=== PATIENT | female | born 1935 | race Caucasian/White ===

== ENCOUNTER 2018-03-16 11:24 | Inpatient (IN) | payer OTHER ==
[~2018-03-16] VITALS: Ht 162.6 cm; Wt 67.1 kg
[~2018-03-16 11:24] MED LIST: ABAT250V; ACET325 PO; ALBU4 PO; ASCO1ER; ASCO500 PO; ASPI325 PO; ASPI81CH PO; ATEN100; ATEN50 PO; Amiodarone HCl200 MG PO; CALC1.25T PO; CALCAVITDA PO; CALCIT950; CEPH500 PO; CONESTTC VAG; Coumadin5 MG PO; DIGO.25; DIGO.25 PO; Diovan320 MG PO; ESOM20; ESOM20 PO; Elmiron100 MG; FURO20 PO; FURO40 PO; HYDACE10B PO; HYDR10; HYDURE500; HYDURE500 PO; ISOMON30 PO; METO50 PO; MULVITA PO; Miacalcin I200 IU/ML; NEBI10 PO; NEBI5 PO; NIFE30ER PO; NIFE60ER PO; Nifedical Xl60 MG PO; Norco 5-325 Ta1 EACH PO; OMEP10ER PO; Omeprazole20 M1; POTCHL20ER PO; ROPI1; Sotalol80 MG PO; TOCO1000; TOCO400 PO; TRAM50 PO; TRIM100 PO; TYLECOD3 PO; Tylenol325 MG PO; VALS80; VALS80 PO; VERA100; VERA240ERB PO; XARELTO10 MG PO; XARELTO15 MG PO
[2018-03-16 13:14] LABS: Source, Urine Catheter
[2018-03-16] MEDS ORDERED: METO100ER PO (13:16)
[2018-03-16 13:22] LABS: Bilirubin, Urine Neg (Neg); Blood, Urine 2+ (Neg); Glucose Qualitative, Urine 3+ (Neg); Ketones, Urine Neg (Neg); Leukocyte Esterase, Urine Neg (Neg); Nitrite, Urine Neg (Neg); Protein, Urine Neg (Neg); Specific Gravity, Urine 1.015 (1.003-1.022); Urobilinogen, Urine NORM (Normal)
[2018-03-16] MEDS ORDERED: DILT30 PO (13:22)
[2018-03-16] MEDS ORDERED: DIGOX125 MCG PO (13:22)
[2018-03-16 13:39] LABS: Color, Urine Yellow (P-Yellow)
[2018-03-16 13:40] LABS: Bacteria Many /hpf; Squamous Epithelial Cells Not Seen /hpf (Few)
[2018-03-16 13:41] LABS: Appearance, Urine Hazy (Clear)
[2018-03-16 13:57] LABS: BASOPHILS ABSOLUTE AUTO 0.01 K/mm3 (0.00-0.23); BASOPHILS PERCENT AUTO 0 % (0-2); EOSINOPHILS ABSOLUTE AUTO 0.17 K/mm3 (0.00-0.68); EOSINOPHILS PERCENT AUTO 2 % (0-6); Hemoglobin 13.3 g/dL (11.5-16.0); IMMATURE GRAN ABSOLUTE AUTO 0.05 K/mm3 (0.00-0.10); IMMATURE GRAN PERCENT AUTO 1 % (0-1); LYMPHOCYTES ABSOLUTE AUTO 1.28 K/mm3 (0.84-5.20); LYMPHOCYTES PERCENT AUTO 16 % (21-46); MONOCYTES ABSOLUTE AUTO 0.89 K/mm3 (0.16-1.47); MONOCYTES PERCENT AUTO 11 % (4-13); Mean Corpuscular HGB 35.2 pg (26.0-34.0); Mean Corpuscular HGB Conc 33.3 g/dL (31.5-36.5); Mean Corpuscular Volume 106 fL (80-100); Mean Platelet Volume 10.4 fL (9.1-12.4); NEUTROPHILS PERCENT AUTO 70 % (41-73); Platelet Count 273 K/mm3 (150-400); RDW Coefficient Variation 13.3 % (11.7-14.2); RDW Standard Deviation 51.6 fL (35.1-46.3); Red Blood Cell Count 3.78 M/mm3 (3.80-5.20)
[2018-03-16 14:10] LABS: Anion Gap 7 mmol/L (6-16); Blood Urea Nitrogen 17 mg/dL (8-24); Bun/Creatinine Ratio 25.4 (12.0-20.0); CO2, Blood 27 mmol/L (21-32); Chloride, Blood 106 mmol/L (98-108); Creatinine, Blood 0.67 mg/dL (0.40-1.00); Glomerular Filtration Rate >60 (60-); Glucose, Blood 282 mg/dL (70-99); Potassium, Blood 3.4 mmol/L (3.5-5.5); Sodium, Blood 140 mmol/L (136-145)
[2018-03-16] MEDS ORDERED: GENPREOPSU (16:54)
[2018-03-16] MEDS ORDERED: POTCHL20ER PO (17:08)
[2018-03-16 18:37] LABS: Digoxin (Lanoxin) 0.26 ug/mL (0.80-2.00)
[2018-03-17 04:37] LABS: Hematocrit 37.9 % (33.0-51.0); Hemoglobin 12.6 g/dL (11.5-16.0); Mean Corpuscular HGB 34.8 pg (26.0-34.0); Mean Corpuscular HGB Conc 33.2 g/dL (31.5-36.5); Mean Corpuscular Volume 105 fL (80-100); Platelet Count 232 K/mm3 (150-400); RDW Coefficient Variation 13.2 % (11.7-14.2); RDW Standard Deviation 50.9 fL (35.1-46.3); Red Blood Cell Count 3.62 M/mm3 (3.80-5.20); White Blood Cell Count 8.49 K/mm3 (4.00-11.30)
[2018-03-17 04:59] LABS: Anion Gap 8 mmol/L (6-16); Blood Urea Nitrogen 18 mg/dL (8-24); Bun/Creatinine Ratio 23.9 (12.0-20.0); CO2, Blood 28 mmol/L (21-32); Calcium, Blood 8.6 mg/dL (8.5-10.1); Chloride, Blood 105 mmol/L (98-108); Creatinine, Blood 0.75 mg/dL (0.40-1.00); Glomerular Filtration Rate >60 (60-); Glucose, Blood 150 mg/dL (70-99); Potassium, Blood 3.4 mmol/L (3.5-5.5); Sodium, Blood 141 mmol/L (136-145)
[2018-03-17 10:38] LABS: International Normalized Ratio 1.25; Prothrombin Time Results 13.1 Sec (9.7-11.5)
[2018-03-18 04:07] LABS: BASOPHILS ABSOLUTE AUTO 0.02 K/mm3 (0.00-0.23); BASOPHILS PERCENT AUTO 0 % (0-2); EOSINOPHILS ABSOLUTE AUTO 0.08 K/mm3 (0.00-0.68); EOSINOPHILS PERCENT AUTO 1 % (0-6); Hematocrit 37.2 % (33.0-51.0); Hemoglobin 11.9 g/dL (11.5-16.0); IMMATURE GRAN ABSOLUTE AUTO 0.05 K/mm3 (0.00-0.10); IMMATURE GRAN PERCENT AUTO 1 % (0-1); LYMPHOCYTES ABSOLUTE AUTO 0.81 K/mm3 (0.84-5.20); LYMPHOCYTES PERCENT AUTO 9 % (21-46); MONOCYTES ABSOLUTE AUTO 1.43 K/mm3 (0.16-1.47); MONOCYTES PERCENT AUTO 15 % (4-13); Mean Corpuscular HGB 34.2 pg (26.0-34.0); Mean Corpuscular Volume 107 fL (80-100); Mean Platelet Volume 10.5 fL (9.1-12.4); NEUTROPHILS ABSOLUTE AUTO 6.87 K/mm3 (1.96-9.15); NEUTROPHILS PERCENT AUTO 74 % (41-73); Platelet Count 218 K/mm3 (150-400); RDW Standard Deviation 50.8 fL (35.1-46.3); Red Blood Cell Count 3.48 M/mm3 (3.80-5.20); White Blood Cell Count 9.26 K/mm3 (4.00-11.30)
[2018-03-18 04:33] LABS: Albumin, Blood 2.9 g/dL (3.4-5.0); Anion Gap 8 mmol/L (6-16); Blood Urea Nitrogen 19 mg/dL (8-24); Bun/Creatinine Ratio 24.3 (12.0-20.0); CO2, Blood 30 mmol/L (21-32); Calcium, Blood 8.1 mg/dL (8.5-10.1); Chloride, Blood 99 mmol/L (98-108); Creatinine, Blood 0.78 mg/dL (0.40-1.00); Glomerular Filtration Rate >60 (60-); Glucose, Blood 210 mg/dL (70-99); Magnesium, Blood 1.9 mg/dL (1.6-2.4); Phosphorus, Blood 3.3 mg/dL (2.5-4.9); Potassium, Blood 3.3 mmol/L (3.5-5.5); Sodium, Blood 137 mmol/L (136-145)
[2018-03-19 04:06] LABS: Hematocrit 34.8 % (33.0-51.0); Hemoglobin 11.5 g/dL (11.5-16.0); Mean Corpuscular HGB 35.3 pg (26.0-34.0); Mean Corpuscular Volume 107 fL (80-100); Mean Platelet Volume 10.5 fL (9.1-12.4); Platelet Count 177 K/mm3 (150-400); RDW Coefficient Variation 13.1 % (11.7-14.2); RDW Standard Deviation 50.9 fL (35.1-46.3); Red Blood Cell Count 3.26 M/mm3 (3.80-5.20); White Blood Cell Count 6.79 K/mm3 (4.00-11.30)
[2018-03-19 04:32] LABS: Albumin, Blood 2.5 g/dL (3.4-5.0); Anion Gap 7 mmol/L (6-16); Blood Urea Nitrogen 12 mg/dL (8-24); Bun/Creatinine Ratio 19.2 (12.0-20.0); CO2, Blood 27 mmol/L (21-32); Calcium, Blood 7.9 mg/dL (8.5-10.1); Chloride, Blood 107 mmol/L (98-108); Creatinine, Blood 0.62 mg/dL (0.40-1.00); Glomerular Filtration Rate >60 (60-); Glucose, Blood 140 mg/dL (70-99); Phosphorus, Blood 2.5 mg/dL (2.5-4.9); Potassium, Blood 3.7 mmol/L (3.5-5.5); Sodium, Blood 141 mmol/L (136-145)
[2018-03-19 04:41] LABS: Digoxin (Lanoxin) 1.23 ug/mL (0.80-2.00)
[2018-03-19] MEDS ORDERED: CYCL10 PO (10:22)
[2018-03-19] MEDS ORDERED: HYDR1TAB94 PO (10:23)
[2018-03-19] MEDS ORDERED: LEVFLO500 PO (10:23)
== END 2018-03-19 16:00 | DRG 480 ==
LOC: ER 11:24 → ICUW 15:58 → SURS 15:58 → ICUW 03-18 11:00 → SURS 03-19 09:01
PROVIDERS: Anesthesiology; Emergency Medicine; Internal Medicine; Orthopaedic Surgery
PROC: 0QSC34Z Reposition Left Lower Femur with Internal Fixation Device, Percutaneous Approach (ICD-10-PCS; principal; 2018-03-17 12:00)
DX: S72.142A Displaced intertrochanteric fracture of left femur, initial encounter for closed fracture (principal); J96.01 Acute respiratory failure with hypoxia; I48.92 Unspecified atrial flutter; I42.1 Obstructive hypertrophic cardiomyopathy; N39.0 Urinary tract infection, site not specified; W01.0XXA Fall on same level from slipping, tripping and stumbling without subsequent striking against object, initial encounter; M85.80 Other specified disorders of bone density and structure, unspecified site; Z66 Do not resuscitate; E87.6 Hypokalemia; D45 Polycythemia vera; Z95.0 Presence of cardiac pacemaker; I48.91 Unspecified atrial fibrillation; T50.1X5A Adverse effect of loop [high-ceiling] diuretics, initial encounter; B96.20 Unspecified Escherichia coli [E. coli] as the cause of diseases classified elsewhere; B95.2 Enterococcus as the cause of diseases classified elsewhere; I95.9 Hypotension, unspecified
CPT/HCPCS: 36415; 51702; 71045; 73502; 80048; 80069; 80162; 81001; 82947; 83735; 83880; 85025; 85027; 85610; 85730; 86850; 86900; 86901; 87077; 87086; 87186; 93005; 93010; 94640; 94760; 94762; 97110; 97162; 97166; 97530; 97535; 99285; C1713; C1769; G8978; G8979; G8987; G8988; J0690; J1160; J2250; J3010; J7030; J7120

== ENCOUNTER 2022-09-27 10:20 | Inpatient (IN) | payer OTHER ==
[~2022-09-27] VITALS: Ht 162.6 cm; Wt 53.8 kg
[~2022-09-27 10:20] MED LIST changes: +CYCL10 PO; +DIGOX125 MCG PO; +DILT30 PO; +GENPREOPSU; +HYDR1TAB94 PO; +LEVFLO500 PO; +METO100ER PO
[2022-09-27 12:22] LABS: BASOPHILS ABSOLUTE AUTO 0.02 K/mm3 (0.00-0.23); BASOPHILS PERCENT AUTO 0 % (0-2); EOSINOPHILS PERCENT AUTO 0 % (0-6); Hematocrit 44.3 % (33.0-51.0); Hemoglobin 15.1 g/dL (11.5-16.0); IMMATURE GRAN ABSOLUTE AUTO 0.06 K/mm3 (0.00-0.10); IMMATURE GRAN PERCENT AUTO 0 % (0-1); LYMPHOCYTES PERCENT AUTO 4 % (21-46); MONOCYTES ABSOLUTE AUTO 1.16 K/mm3 (0.16-1.47); MONOCYTES PERCENT AUTO 9 % (4-13); Mean Corpuscular HGB 31.4 pg (26.0-34.0); Mean Corpuscular HGB Conc 34.1 g/dL (31.5-36.5); Mean Corpuscular Volume 92 fL (80-100); Mean Platelet Volume 10.3 fL (9.1-12.4); NEUTROPHILS ABSOLUTE AUTO 11.62 K/mm3 (1.96-9.15); NEUTROPHILS PERCENT AUTO 87 % (41-73); Platelet Count 305 K/mm3 (150-400); RDW Coefficient Variation 12.8 % (11.7-14.2); RDW Standard Deviation 43.5 fL (35.1-46.3); Red Blood Cell Count 4.81 M/mm3 (3.80-5.20); White Blood Cell Count 13.36 K/mm3 (4.00-11.30)
[2022-09-27 12:42] LABS: Albumin, Blood 3.8 g/dL (3.4-5.0); Albumin/Globulin Ratio 0.8 (0.8-1.8); Bilirubin, Total 1.2 mg/dL (0.1-1.0); Calcium, Blood 9.4 mg/dL (8.5-10.1); Creatinine, Blood 0.55 mg/dL (0.40-1.00); Globulin, Blood 4.6 g/dL (2.2-4.0); Potassium, Blood 3.4 mmol/L (3.5-5.5); Total Protein, Blood 8.4 g/dL (6.4-8.2)
[2022-09-27 15:23] LABS: Source, Urine Clean Catch
[2022-09-27 15:57] LABS: Appearance, Urine Hazy (Clear); Bilirubin, Urine Neg (Neg); Blood, Urine 2+ (Neg); Color, Urine Yellow (P-Yellow); Glucose Qualitative, Urine 4+ (Neg); Ketones, Urine Neg (Neg); Leukocyte Esterase, Urine 1+ (Neg); Nitrite, Urine Pos (Neg); Protein, Urine 2+ (Neg); Urobilinogen, Urine 1+ (Normal)
[2022-09-27 16:29] LABS: Bacteria Many /hpf; Squamous Epithelial Cells Few /hpf (Few)
[2022-09-27 17:25] LABS: International Normalized Ratio 1.45; Prothrombin Time Results 14.9 Sec (9.7-11.5)
[2022-09-27 19:41] LABS: Influenza A, PCR NEGATIVE (NEGATIVE); Influenza B, PCR NEGATIVE (NEGATIVE); Resp Syncytial Virus, PCR NEGATIVE (NEGATIVE); SARS-Cov-2 (COVID-19) PCR, MMC NEGATIVE (NEGATIVE)
[2022-09-28 02:08] LABS: Mean Corpuscular HGB 31.5 pg (26.0-34.0); Mean Corpuscular HGB Conc 34.1 g/dL (31.5-36.5); Mean Corpuscular Volume 92 fL (80-100); Platelet Count 340 K/mm3 (150-400); RDW Standard Deviation 44.2 fL (35.1-46.3); Red Blood Cell Count 4.76 M/mm3 (3.80-5.20); White Blood Cell Count 15.89 K/mm3 (4.00-11.30)
[2022-09-28 02:39] LABS: Alanine Aminotransfer (ALT/SGP 25 U/L (12-78); Albumin, Blood 3.1 g/dL (3.4-5.0); Albumin/Globulin Ratio 0.8 (0.8-1.8); Alk Phos 73 U/L (50-136); Anion Gap 6 mmol/L (6-16); Aspartate Aminotrans (AST/SGOT 22 U/L (12-37); Bilirubin, Total 1.8 mg/dL (0.1-1.0); Blood Urea Nitrogen 14 mg/dL (8-24); Bun/Creatinine Ratio 25.1 (12.0-20.0); CO2, Blood 26 mmol/L (21-32); Calcium, Blood 8.3 mg/dL (8.5-10.1); Chloride, Blood 108 mmol/L (98-108); Creatinine, Blood 0.56 mg/dL (0.40-1.00); Digoxin (Lanoxin) 0.96 ug/mL (0.80-2.00); Glomerular Filtration Rate 89 (60-); Glucose, Blood 185 mg/dL (70-99); Potassium, Blood 3.7 mmol/L (3.5-5.5); Sodium, Blood 140 mmol/L (136-145); Total Protein, Blood 7.1 g/dL (6.4-8.2)
--- NOTE | 2022-09-28 06:34 | NUR ---
SHIFT SUMMARY: ADMITTED TO UNIT AT 2145 ON 09/27/22. 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 ORIENTATED TO SELF ONLY. PT REPORTS LIVING WITH HER MOTHER AND FATHER. APPEARS CONFUSED WHEN ATTEMPTING TO EXPLAIN PLAN OF CARE TO HER. ABLE TO AMBULATE SBA FROM GURNEY TO BED AND BED TO BSC WITH MINIMAL ASSISTANCE. PT HR A-FIB/RVR IN 80-90'S. NO COMPLAINTS OF CHEST PAIN. O2 SATS MAINTAINED > 92% ON 3LPM. RN IN ED REPORTS SATS DROPPING TO LOW 80'S WHEN ON RA. NO COMPLAINTS OF SOB. RESPIRATIONS EVEN AND UNLABORED. NPO AT [place] FOR H[place] SCAN THIS A.M. PT HAS HAD NO COMPLAINTS OF N/V, OR ABDOMENAL PAIN DURING SHIFT.
[2022-09-28] MEDS ORDERED: DILTIAZEM 24HR180 M4 PO (10:26)
--- NOTE | 2022-09-28 17:57 | NUR ---
SHIFT SUMMARY; ASSUMED CARE AT 0700. APPEARS ANGRY WHEN ASSUMING CARE. ASKS MULTIPLE TIMES FOR WATER, EDUCATED ON NPO FOR HYTA SCAN. HOT STICK MAN IN ROOM TO CHECK CHEMBG. PT PINCHES HOT STICK MAN FINGER HARD AND STATES TO LEAVE HER ALONE. REFUSES TO ALLOW CHEMBG CHECK. SPOKE WITH DR. ROWE, CHEMBG AND INSULIN DC'D PER VERBAL ORDER. SCAN COMPLETE PO FLUID GIVEN AFTERWARD, TOLERATES WELL. BECOMES MORE COOPERATIVE AFTER FLUIDS GIVEN, USES BEDSIDE COMMODE WITH SBA. SPOUSE AND SON IN ROOM DURING SHIFT. UPDATED BY DR. COHEN ON RESULTS OF SCAN, LOW FAT DIET ORDERED. MOVES SELF ON GURNEY NEEDED, O2 INCREASED TO 5L VIA NC TO MAINTAIN SATS >90%, L/S DIM T/O. WILL CONTINUE TO MONITOR AND TREAT UNTIL CHANGE OF SHIFT.
--- NOTE | 2022-09-28 19:42 | NUR ---
ASSUMED PT CARE FROM JEAN-CLAUDE ALVARADO ON . PT SITTING UP IN BED BRUSHING TEATH INDEPENDENTLY. ASSISTED WITH DISPOSING OF MOUTH CARE SUPPLIES. PT IS PLEASANT, SMILING, AND INTERACTING APPROPRAITELY AT THIS TIME. ALERT, ORIENTED TO SELF AND LOCATION. PRESENTS WTIH SOME WORD SEARCHING WITH CONVERSATIONS BUT APPEARS TO BE AWARE OF WHEN SHE IS UNABLE TO SPEAK CORRECT WORD IN SENTENCE. RESPIRATIONS ARE EVEN AND UNLABORED. LUNG MONTENEGRO DIMINISHED IN BASES. O2 SATS > 92% ON 5LPM. HR IS A-FIB IN THE 90'S. NO COMPLAINTS OF CHEST PAIN. DENIES ANY ABDOMENAL PAIN OR NAUSEA AFTER EATING DINNER. REORIENTED PT TO CALL LIGHT. BED ALARM ON. CALL LIGHT IN REACH.
[2022-09-29 04:44] LABS: Hematocrit 41.7 % (33.0-51.0); Mean Corpuscular HGB 31.2 pg (26.0-34.0); Mean Corpuscular HGB Conc 33.6 g/dL (31.5-36.5); Mean Corpuscular Volume 93 fL (80-100); Mean Platelet Volume 10.3 fL (9.1-12.4); Platelet Count 269 K/mm3 (150-400); RDW Coefficient Variation 12.8 % (11.7-14.2); RDW Standard Deviation 43.6 fL (35.1-46.3); Red Blood Cell Count 4.49 M/mm3 (3.80-5.20); White Blood Cell Count 13.26 K/mm3 (4.00-11.30)
--- NOTE | 2022-09-29 05:06 | NUR ---
SHIFT SUMMARY: NO ACUTE CHANGES DURING SHIFT. REPOSITIONS SELF FOR COMFORT. UP TO BSC WITH SBA TO VOID CLEAR, TEA COLORED URINE. BED ALARM ON. CALL LIGHT IN REACH.
[2022-09-29 05:07] LABS: Albumin, Blood 2.6 g/dL (3.4-5.0); Albumin/Globulin Ratio 0.6 (0.8-1.8); Bun/Creatinine Ratio 31.2 (12.0-20.0); Calcium, Blood 8.2 mg/dL (8.5-10.1); Creatinine, Blood 0.58 mg/dL (0.40-1.00); Globulin, Blood 4.1 g/dL (2.2-4.0); Potassium, Blood 3.4 mmol/L (3.5-5.5); Total Protein, Blood 6.7 g/dL (6.4-8.2)
--- NOTE | 2022-09-29 10:41 | NUR ---
PATIENT ARRIVED TO UNIT VIA W/C. TRANSFERRED TO BED SBA. 3L [address] LUNGS CLEAR. PATIENT REPORTS MINIMAL PAIN TO ABDOMEN IN RUQ, OTHERWISE NO COMPLAINTS/PAIN. ORIENTED TO ROOM & CALL LIGHT, IN REACH.
--- NOTE | 2022-09-29 17:57 | NUR ---
SHIFT SUMMARY NO ACUTE CHANGES SINCE ARRIVAL TO UNIT. VSS, ON 3L 02, SATS MAINTAINING >92%. EATING, DRINKING, & VOIDING WELL. MINIMAL 1P ASSISATNCE TO BSC, TOLERATES WELL. CALLS APPROPRIATELY, IN REACH. WILL REPORT TO ONCOMING RN AT 1900.
--- NOTE | 2022-09-30 04:38 | NUR ---
SHIFT SUMMARY NO ACUTE CHANGES. PT REPORTS A DULL ACHE IN HER RLQ. FENTANYL X1 GIVEN AND PT REPORTS EFFECTIVE. NPO SINCE MIDNIGHT FOR POSSIBLE PROCEDURE TODAY. INDEP TO BSC. ON 1L VIA NC TO MAINTAIN SATS >90%. IV ABX PER ORDERS. CALL LIGHT WITHIN REACH.
[2022-09-30 08:01] LABS: BASOPHILS ABSOLUTE AUTO 0.02 K/mm3 (0.00-0.23); BASOPHILS PERCENT AUTO 0 % (0-2); EOSINOPHILS ABSOLUTE AUTO 0.06 K/mm3 (0.00-0.68); EOSINOPHILS PERCENT AUTO 1 % (0-6); Hematocrit 39.6 % (33.0-51.0); Hemoglobin 13.6 g/dL (11.5-16.0); IMMATURE GRAN ABSOLUTE AUTO 0.03 K/mm3 (0.00-0.10); IMMATURE GRAN PERCENT AUTO 0 % (0-1); LYMPHOCYTES ABSOLUTE AUTO 0.87 K/mm3 (0.84-5.20); LYMPHOCYTES PERCENT AUTO 8 % (21-46); MONOCYTES ABSOLUTE AUTO 1.28 K/mm3 (0.16-1.47); MONOCYTES PERCENT AUTO 11 % (4-13); Mean Corpuscular HGB 31.6 pg (26.0-34.0); Mean Corpuscular HGB Conc 34.3 g/dL (31.5-36.5); Mean Corpuscular Volume 92 fL (80-100); Mean Platelet Volume 10.4 fL (9.1-12.4); NEUTROPHILS ABSOLUTE AUTO 9.29 K/mm3 (1.96-9.15); NEUTROPHILS PERCENT AUTO 80 % (41-73); Platelet Count 275 K/mm3 (150-400); RDW Coefficient Variation 12.7 % (11.7-14.2); RDW Standard Deviation 42.6 fL (35.1-46.3); White Blood Cell Count 11.55 K/mm3 (4.00-11.30)
[2022-09-30 08:20] LABS: Albumin, Blood 2.6 g/dL (3.4-5.0); Albumin/Globulin Ratio 0.7 (0.8-1.8); Bilirubin, Total 1.7 mg/dL (0.1-1.0); Bun/Creatinine Ratio 33.9 (12.0-20.0); Calcium, Blood 8.4 mg/dL (8.5-10.1); Creatinine, Blood 0.53 mg/dL (0.40-1.00); Globulin, Blood 3.9 g/dL (2.2-4.0); Potassium, Blood 3.4 mmol/L (3.5-5.5); Total Protein, Blood 6.5 g/dL (6.4-8.2)
--- NOTE | 2022-09-30 16:27 | NUR ---
SHIFT SUMMARY PT REPORTS PAIN HAS BEEN FEELING BETTER T/O SHIFT TODAY. SHE HAS TOLERATED WATER AND SOME SMALL AMOUNTS OF FOOD. CONTINUES TO PASS GAS AND VOIDS WELL. PLAN IS FOR PATIENT TO HAVE PROCEDURE TOMORROW, NPO AT MIDNIGHT IN PREPARATION. PT AWARE AND AGREEABLE TO PLAN. PATIENT CALLS APPROPRIATLY. PAIN MANAGED PER EMAR.
--- NOTE | 2022-09-30 23:37 | NUR ---
PT CONFUSED. PULLED IV OUT AND TOOK NC OFF. REORIENTED, O2 PLACED BACK ON, AND NEW IV PLACED. BED ALARM ON.
--- NOTE | 2022-10-01 04:04 | NUR ---
SHIFT SUMMARY NO ACUTE CHANGES. PT FORGETFUL AT TIMES BUT REORIENTS EASILY AND IS PLEASANT AND COOPERATIVE. REPORTS MILD ABD PAIN BUT DENIES NEED FOR MEDICATIONS. IV ABX PER ORDERS. NPO SINCE MIDNIGHT FOR PROCEDURE. CALL LIGHT WITHIN REACH.
[2022-10-01 05:57] LABS: BASOPHILS ABSOLUTE AUTO 0.01 K/mm3 (0.00-0.23); BASOPHILS PERCENT AUTO 0 % (0-2); EOSINOPHILS ABSOLUTE AUTO 0.06 K/mm3 (0.00-0.68); EOSINOPHILS PERCENT AUTO 0 % (0-6); Hematocrit 41.1 % (33.0-51.0); Hemoglobin 13.9 g/dL (11.5-16.0); IMMATURE GRAN ABSOLUTE AUTO 0.05 K/mm3 (0.00-0.10); IMMATURE GRAN PERCENT AUTO 0 % (0-1); LYMPHOCYTES ABSOLUTE AUTO 0.81 K/mm3 (0.84-5.20); LYMPHOCYTES PERCENT AUTO 6 % (21-46); MONOCYTES ABSOLUTE AUTO 1.59 K/mm3 (0.16-1.47); MONOCYTES PERCENT AUTO 12 % (4-13); Mean Corpuscular HGB 31.5 pg (26.0-34.0); Mean Corpuscular HGB Conc 33.8 g/dL (31.5-36.5); Mean Corpuscular Volume 93 fL (80-100); Mean Platelet Volume 10.8 fL (9.1-12.4); NEUTROPHILS ABSOLUTE AUTO 11.04 K/mm3 (1.96-9.15); NEUTROPHILS PERCENT AUTO 81 % (41-73); Platelet Count 314 K/mm3 (150-400); RDW Coefficient Variation 12.6 % (11.7-14.2); Red Blood Cell Count 4.41 M/mm3 (3.80-5.20); White Blood Cell Count 13.56 K/mm3 (4.00-11.30)
[2022-10-01 06:18] LABS: Albumin, Blood 2.6 g/dL (3.4-5.0); Albumin/Globulin Ratio 0.6 (0.8-1.8); Bilirubin, Total 1.2 mg/dL (0.1-1.0); Bun/Creatinine Ratio 31.4 (12.0-20.0); Calcium, Blood 8.5 mg/dL (8.5-10.1); Creatinine, Blood 0.51 mg/dL (0.40-1.00); Potassium, Blood 3.5 mmol/L (3.5-5.5); Total Protein, Blood 6.6 g/dL (6.4-8.2)
--- NOTE | 2022-10-01 12:17 | NUR ---
PT AT BEDSIDE AT ABOUT 0900 AND GIVEN AN UPDATE THAT PROCEDURE TO BE AT 1400 TODAY.
--- NOTE | 2022-10-01 14:08 | NUR ---
PT TO IMAGING AT THIS TIME
--- NOTE | 2022-10-01 18:19 | NUR ---
POST PROCEDURE: REPORT FROM DUST PULLER AT 1500, PT TO ROOM AT ABOUT 1503. PT IS A/O, VSS. PT REPORTS THAT HER HEART "FEELS LIKE ITS BEATING FAST." RATE IS 55-67, WITH ASCULTATION, RYTHUM IRREGULAR, PT HAS HISTORY OF AFIB. BP IS WNL. PT DENIES CP, SOB. PT DID REPORT FEELING SCARED FOR THE DRAIN PLACEMENT, AND APPEARED ANXIOUS AT THIS TIME. DR. PEGUERO MADE AWARE THAT THE PT MADE HAVE BEEN FEELING PALPITATIONS. NO NEW ORDERS. PT OTHERWISE STABLE AND DRAIN SITE WNL. DRAINING DARK BLOOD/BILE. PT FAMILY AT BEDSIDE.
--- NOTE | 2022-10-01 19:54 | NUR ---
SUMMARY: PT IS POD0 URISEL DRAIN PLACEMENT. VSS, ALERT AND CONFUSED. BED ALARM ON. NO CHANGE SINCE POST OP. PT HAS VOIDED. IV ABX INFUSED.DRAIN WNL. PT HAS DENIED PAIN AND ABLE TO DRINK SOME WATER. PLAN TO ADVANCE DIET TOLERATED. NO ACUTE SAFETY CONCERNS. REPORT PASSED TO BRENT ALVARADO.
[2022-10-02 05:32] LABS: BASOPHILS ABSOLUTE AUTO 0.02 K/mm3 (0.00-0.23); BASOPHILS PERCENT AUTO 0 % (0-2); EOSINOPHILS ABSOLUTE AUTO 0.16 K/mm3 (0.00-0.68); EOSINOPHILS PERCENT AUTO 2 % (0-6); Hematocrit 41.1 % (33.0-51.0); Hemoglobin 13.7 g/dL (11.5-16.0); IMMATURE GRAN ABSOLUTE AUTO 0.02 K/mm3 (0.00-0.10); IMMATURE GRAN PERCENT AUTO 0 % (0-1); LYMPHOCYTES ABSOLUTE AUTO 0.81 K/mm3 (0.84-5.20); LYMPHOCYTES PERCENT AUTO 10 % (21-46); MONOCYTES ABSOLUTE AUTO 1.19 K/mm3 (0.16-1.47); MONOCYTES PERCENT AUTO 15 % (4-13); Mean Corpuscular HGB 31.2 pg (26.0-34.0); Mean Corpuscular HGB Conc 33.3 g/dL (31.5-36.5); Mean Corpuscular Volume 94 fL (80-100); Mean Platelet Volume 10.4 fL (9.1-12.4); NEUTROPHILS ABSOLUTE AUTO 5.76 K/mm3 (1.96-9.15); NEUTROPHILS PERCENT AUTO 72 % (41-73); Platelet Count 279 K/mm3 (150-400); RDW Coefficient Variation 12.5 % (11.7-14.2); RDW Standard Deviation 43.4 fL (35.1-46.3); Red Blood Cell Count 4.39 M/mm3 (3.80-5.20); White Blood Cell Count 7.96 K/mm3 (4.00-11.30)
--- NOTE | 2022-10-02 05:47 | NUR ---
SHIFT SUMMARY: REMAINED A&0X1-2 DURING THIS SHIFT. OCCASSIONAL EPISODES OF CONFUSION. PT PULLED OUT IVs IN RIGHT ARM. EASILY REORIENTED. PT REPORTS HAVING OCCASSIONAL APHASIA DUE TO HX OF CVA. AMB WITH ASSISTANCE TO USE BSC. HAVING SMALL AMOUNTS OF LOOSE STOOL. STILL C/O RUQ PAIN THAT PT DESCRIBES A "DULL ACHE." PERCUTANEOUS DRAIN HAS HAD DARK BILE/MUCUS LIKE DRAINAGE THAT HAS LIGHTENED IN APPEARANCE. DENIED CHEST PAIN OR SOB T/O SHIFT. VITAL SIGNS REMAINED STABLE. RESTING WITH CALL LIGHT IN REACH. WILL GIVE REPORT TO DAY SHIFT RN.
[2022-10-02 06:08] LABS: Albumin, Blood 2.2 g/dL (3.4-5.0); Albumin/Globulin Ratio 0.6 (0.8-1.8); Bilirubin, Total 0.8 mg/dL (0.1-1.0); Bun/Creatinine Ratio 29.6 (12.0-20.0); Calcium, Blood 8.3 mg/dL (8.5-10.1); Creatinine, Blood 0.51 mg/dL (0.40-1.00); Globulin, Blood 3.8 g/dL (2.2-4.0); Potassium, Blood 3.3 mmol/L (3.5-5.5)
[2022-10-02] MEDS ORDERED: METO50ER PO (12:15)
[2022-10-02] MEDS ORDERED: ATORVASTATIN CA80 M1 PO (12:17)
[2022-10-02] MEDS ORDERED: Acetaminophen650 M1 PO (12:17)
--- NOTE | 2022-10-02 12:44 | NUR ---
DISCHARGED IV DC'D, CATHETER INTACT. EDUCATED PT, SPOUSE AND SON ON MAINTENANCE OF URESIL DRAIN. REVIEWED DC PAPERWORK WITH FAMILY; VERBALIZED UNDERSTANDING. FAXED PRESCRIPTIONS TO [facility] PER REQUEST. PT LEFT UNIT IN WC, ACCOMPANIED BY SPOUSE AND SON W/POSSESSIONS AND DC PAPERWORK IN HAND TO CAR OUTSIDE.
== END 2022-10-02 12:43 | disposition home or self-care (01) | DRG 872 ==
LOC: ER 10:20 → EDBEDREQ 16:06 → EDBEDREQSVC 16:06 → ERHOLD 16:11 → PCU 21:37 → SURS 09-29 10:55
PROVIDERS: Family Medicine; Physician Assistant; Student in an Organized Health Care Education/Training Program; ADMIT Hospitalist
PROC: 0F9430Z Drainage of Gallbladder with Drainage Device, Percutaneous Approach (ICD-10-PCS; principal; 2022-10-01)
DX: A41.9 Sepsis, unspecified organism (principal); E87.20 Acidosis, unspecified; I48.19 Other persistent atrial fibrillation; N39.0 Urinary tract infection, site not specified; K80.00 Calculus of gallbladder with acute cholecystitis without obstruction; Z79.01 Long term (current) use of anticoagulants; I10 Essential (primary) hypertension; I27.20 Pulmonary hypertension, unspecified; R65.20 Severe sepsis without septic shock; E89.0 Postprocedural hypothyroidism; G47.33 Obstructive sleep apnea (adult) (pediatric); K21.9 Gastro-esophageal reflux disease without esophagitis; E11.9 Type 2 diabetes mellitus without complications; Z87.891 Personal history of nicotine dependence; Z79.84 Long term (current) use of oral hypoglycemic drugs; Z95.0 Presence of cardiac pacemaker; I49.5 Sick sinus syndrome; E87.6 Hypokalemia; I69.320 Aphasia following cerebral infarction
CPT/HCPCS: 0241U; 36415; 49405; 71045; 74177; 76705; 78226; 80053; 80162; 81001; 82947; 83605; 83690; 83735; 85025; 85027; 85610; 85730; 87040; 87070; 87075; 87077; 87086; 87186; 87205; 93005; 93010; 96365; 96366; 96367; 96372; 96375; 96376; 99284-25; A9270; A9537; G0378; J0295; J0780; J1644; J1650; J2270; J2405; J2543; J3010; J3480; J7030; J7050; Q9967

== ENCOUNTER 2022-10-09 05:43 | Emergency (ER) | payer OTHER ==
[~2022-10-09] VITALS: Ht 165.1 cm; Wt 61.2 kg
[~2022-10-09 05:43] MED LIST changes: +ATORVASTATIN CA80 M1 PO; +Acetaminophen650 M1 PO; +DILTIAZEM 24HR180 M4 PO; +METO50ER PO
[2022-10-09 06:43] LABS: BASOPHILS ABSOLUTE AUTO 0.04 K/mm3 (0.00-0.23); BASOPHILS PERCENT AUTO 0 % (0-2); EOSINOPHILS ABSOLUTE AUTO 0.48 K/mm3 (0.00-0.68); EOSINOPHILS PERCENT AUTO 4 % (0-6); Hematocrit 46.2 % (33.0-51.0); Hemoglobin 15.6 g/dL (11.5-16.0); IMMATURE GRAN ABSOLUTE AUTO 0.04 K/mm3 (0.00-0.10); IMMATURE GRAN PERCENT AUTO 0 % (0-1); LYMPHOCYTES ABSOLUTE AUTO 1.71 K/mm3 (0.84-5.20); LYMPHOCYTES PERCENT AUTO 16 % (21-46); MONOCYTES ABSOLUTE AUTO 1.39 K/mm3 (0.16-1.47); MONOCYTES PERCENT AUTO 13 % (4-13); Mean Corpuscular HGB Conc 33.8 g/dL (31.5-36.5); Mean Corpuscular Volume 92 fL (80-100); Mean Platelet Volume 10.2 fL (9.1-12.4); NEUTROPHILS PERCENT AUTO 67 % (41-73); Platelet Count 443 K/mm3 (150-400); RDW Coefficient Variation 12.3 % (11.7-14.2); RDW Standard Deviation 41.5 fL (35.1-46.3); Red Blood Cell Count 5.03 M/mm3 (3.80-5.20); White Blood Cell Count 10.96 K/mm3 (4.00-11.30)
[2022-10-09 07:05] LABS: Albumin, Blood 3.1 g/dL (3.4-5.0); Albumin/Globulin Ratio 0.7 (0.8-1.8); Bilirubin, Total 1.1 mg/dL (0.1-1.0); Bun/Creatinine Ratio 27.7 (12.0-20.0); Calcium, Blood 8.7 mg/dL (8.5-10.1); Creatinine, Blood 0.61 mg/dL (0.40-1.00); Globulin, Blood 4.3 g/dL (2.2-4.0); Potassium, Blood 3.4 mmol/L (3.5-5.5); Total Protein, Blood 7.4 g/dL (6.4-8.2)
[2022-10-09] MEDS ORDERED: OXYC5 PO (11:54)
== END 2022-10-09 12:32 | disposition home or self-care (01) ==
LOC: ER 05:43
PROVIDERS: Emergency Medicine
DX: M54.17 Radiculopathy, lumbosacral region (principal); I82.451 Acute embolism and thrombosis of right peroneal vein; D73.5 Infarction of spleen; N28.0 Ischemia and infarction of kidney; I10 Essential (primary) hypertension; I48.91 Unspecified atrial fibrillation; Z87.891 Personal history of nicotine dependence; Z79.899 Other long term (current) drug therapy; Z79.01 Long term (current) use of anticoagulants
CPT/HCPCS: 73502; 74177; 80053; 85025; 93971; J1885; J2270; Q9967

== ENCOUNTER 2022-12-11 08:49 | Observation (INO) | payer OTHER ==
[~2022-12-11 08:49] MED LIST changes: +CARDIZEM CD180 M6 PO; +Coumadin2 MG PO; +DIGOX125 MC1 PO; -DIGOX125 MCG PO; -GENPREOPSU; +METFORMIN HCL500 M3 PO; +MIRALAX17 GM PO; +OXYC5 PO; +PRED-G 1% EYE DR5 ML BOTHEYES; -XARELTO15 MG PO; +XARELTO20 MG PO
[2022-12-11 12:12] LABS: BASOPHILS ABSOLUTE AUTO 0.03 K/mm3 (0.00-0.23); BASOPHILS PERCENT AUTO 0 % (0-2); EOSINOPHILS ABSOLUTE AUTO 0.15 K/mm3 (0.00-0.68); EOSINOPHILS PERCENT AUTO 2 % (0-6); Hematocrit 41.7 % (33.0-51.0); Hemoglobin 13.5 g/dL (11.5-16.0); IMMATURE GRAN ABSOLUTE AUTO 0.03 K/mm3 (0.00-0.10); IMMATURE GRAN PERCENT AUTO 0 % (0-1); LYMPHOCYTES ABSOLUTE AUTO 1.37 K/mm3 (0.84-5.20); LYMPHOCYTES PERCENT AUTO 18 % (21-46); MONOCYTES ABSOLUTE AUTO 0.83 K/mm3 (0.16-1.47); MONOCYTES PERCENT AUTO 11 % (4-13); Mean Corpuscular HGB 30.8 pg (26.0-34.0); Mean Corpuscular HGB Conc 32.4 g/dL (31.5-36.5); Mean Corpuscular Volume 95 fL (80-100); Mean Platelet Volume 10.7 fL (9.1-12.4); NEUTROPHILS ABSOLUTE AUTO 5.26 K/mm3 (1.96-9.15); NEUTROPHILS PERCENT AUTO 69 % (41-73); Platelet Count 344 K/mm3 (150-400); RDW Coefficient Variation 16.2 % (11.7-14.2); RDW Standard Deviation 56.4 fL (35.1-46.3); Red Blood Cell Count 4.38 M/mm3 (3.80-5.20); White Blood Cell Count 7.67 K/mm3 (4.00-11.30)
[2022-12-11 12:25] LABS: International Normalized Ratio 2.54; Prothrombin Time Results 25.1 Sec (9.7-11.5)
[2022-12-11 12:30] LABS: Albumin, Blood 3.2 g/dL (3.4-5.0); Albumin/Globulin Ratio 0.8 (0.8-1.8); Bun/Creatinine Ratio 42.9 (12.0-20.0); Calcium, Blood 8.9 mg/dL (8.5-10.1); Creatinine, Blood 0.7 mg/dL (0.40-1.00); Potassium, Blood 3.7 mmol/L (3.5-5.5); Total Protein, Blood 7.2 g/dL (6.4-8.2)
[2022-12-12 04:50] LABS: BASOPHILS ABSOLUTE AUTO 0.03 K/mm3 (0.00-0.23); BASOPHILS PERCENT AUTO 0 % (0-2); EOSINOPHILS ABSOLUTE AUTO 0.18 K/mm3 (0.00-0.68); EOSINOPHILS PERCENT AUTO 2 % (0-6); Hematocrit 39.2 % (33.0-51.0); Hemoglobin 12.8 g/dL (11.5-16.0); IMMATURE GRAN ABSOLUTE AUTO 0.03 K/mm3 (0.00-0.10); IMMATURE GRAN PERCENT AUTO 0 % (0-1); LYMPHOCYTES ABSOLUTE AUTO 1.32 K/mm3 (0.84-5.20); LYMPHOCYTES PERCENT AUTO 17 % (21-46); MONOCYTES ABSOLUTE AUTO 1.04 K/mm3 (0.16-1.47); MONOCYTES PERCENT AUTO 13 % (4-13); Mean Corpuscular HGB 30.9 pg (26.0-34.0); Mean Corpuscular HGB Conc 32.7 g/dL (31.5-36.5); Mean Corpuscular Volume 95 fL (80-100); Mean Platelet Volume 10.8 fL (9.1-12.4); NEUTROPHILS ABSOLUTE AUTO 5.34 K/mm3 (1.96-9.15); NEUTROPHILS PERCENT AUTO 67 % (41-73); Platelet Count 305 K/mm3 (150-400); RDW Coefficient Variation 16.4 % (11.7-14.2); RDW Standard Deviation 56.6 fL (35.1-46.3); Red Blood Cell Count 4.14 M/mm3 (3.80-5.20); White Blood Cell Count 7.94 K/mm3 (4.00-11.30)
[2022-12-12 05:05] LABS: International Normalized Ratio 2.66; Prothrombin Time Results 26.2 Sec (9.7-11.5)
[2022-12-12 05:14] LABS: Albumin, Blood 3.1 g/dL (3.4-5.0); Albumin/Globulin Ratio 0.8 (0.8-1.8); Bilirubin, Total 0.9 mg/dL (0.1-1.0); Bun/Creatinine Ratio 37.8 (12.0-20.0); Calcium, Blood 8.8 mg/dL (8.5-10.1); Creatinine, Blood 0.69 mg/dL (0.40-1.00); Globulin, Blood 3.7 g/dL (2.2-4.0); Potassium, Blood 3.4 mmol/L (3.5-5.5); Total Protein, Blood 6.8 g/dL (6.4-8.2)
--- NOTE | 2022-12-12 06:38 | NUR ---
PATIENT IS PLEASANT AND COOPERATIVE WITH BOUTS OF EXPRESSIVE APHASIA. SHE HAS BEEN NPO SINCE 0100 FOR POSSIBLE SURGERY TO REPLAIS BILIARY DRAIN SEVERED (WITH SCISSORS) AT HOME LAST NIGHT. SHE DID GET A CHANCE TO EAT A CUP OF SOUP AND SOME JELLO PRIOR TO BED. ALTHEA STATES SHE HAS HAD NO PAIN OR DISCOMFORT. PATIENT IS STEADY ON FEET AND REQUIRES ONLY A STAND BY ASSIST TO AMBULATE. WOUND IS COVERED WITH 4X4 GAUZE CURRENTLY WITH MINIMAL DRAINAGE FROM TUBE
--- NOTE | 2022-12-12 16:19 | NUR ---
PT AWAKE DURING SHIFT REPORT. PLEASANT AND CO-OP WITH CARE. SOME FORGETFULNESS NOTED. PT ADMITTED FOR MECHANICAL COMPLICATIONS OF THE BILE DUCT. NPO FOR POSSIBLE PROCEDURE. DR DOOLEY IN EARLY TO SEE PT. NO NEW ORDERS AT THIS TIME PT WAITING FOR DR BOWENS TO DISCUSS PLAN OF CARE. DR BOWENS LATER TO AND CLEARED PT FOR D/C TO HOME AND TO F/U WITH SURGERY IN [place]. DIET ORDERED. DR BOWENS TO NOTIFY DR DOOLEY OF PLAN. DR DOOLEY LATER NOTIFIED OF DR BOWENSS VISIT AND RECOMMENDATIONS. D/C ORDERS PLACED. FAMILY HERE TO TAKE PT HOME. D/C INSTRUCTIONS REVIEWED WITH AND SON; VERBALIZED UNDERSTANDING. PT ASSISTED OUT TO SONS CAR VIA W/C. ABLE TO TX SELF. PT UP WITH SBA USING FWW.
== END 2022-12-12 13:36 | disposition home or self-care (01) ==
LOC: ER 08:49 → MEDS 18:46
PROVIDERS: Emergency Medicine; ADMIT Internal Medicine
DX: T85.590A Other mechanical complication of bile duct prosthesis, initial encounter (principal); K80.10 Calculus of gallbladder with chronic cholecystitis without obstruction; I48.91 Unspecified atrial fibrillation; I10 Essential (primary) hypertension; E11.9 Type 2 diabetes mellitus without complications; I69.320 Aphasia following cerebral infarction; Z95.0 Presence of cardiac pacemaker; Z79.01 Long term (current) use of anticoagulants; Z79.84 Long term (current) use of oral hypoglycemic drugs
CPT/HCPCS: 36415; 74177; 80053; 82947; 84484; 85025; 85610; 85730; 93005; 93010; 96365-59; 96375; 99284-25; A9270; G0378; J0696; J3480; J7050; Q9967